=== PATIENT | female | born 1930 | race Caucasian/White ===

== ENCOUNTER 2019-06-12 10:46 | Day surgery (SDC) | payer MEDICARE, BC ==
[2019-06-12] VITALS (11 sets, daily range): BP systolic 134–162; BP diastolic 54–74; PULSE 63–71; TEMP 97.8
[~2019-06-12] VITALS: Ht 147.3 cm; Wt 63.6 kg
[2019-06-12 11:51] LABS: HEMOGLOBIN 12.7 g/dl (12.5-16.0); MEAN CELL VOLUME 94 fl (80.0-100.0); MEAN CORPUSCULAR HEMOGLOBIN 31 pg (27.0-31.0); MEAN CORPUSCULAR HGB CONC 33 g/dl (33.0-37.0); MEAN PLATELET VOLUME 11.6 fl (7.4-10.4); PLATELET COUNT 136 K/mm3 (130-400); RED BLOOD COUNT 4.13 M/mm3 (4.10-5.30); REDCELL DISTRIBUTION WIDTH-CV 13.8 % (11.5-14.5)
[2019-06-12] MEDS ORDERED: TAMBOCOR 1100 MG/TAB PO (11:54)
[2019-06-12] MEDS ORDERED: LOMOTIL 0.025 M1 TAB PO (11:55)
[2019-06-12 11:56] LABS: PROTHROMBIN TIME 11.3 SECONDS (9.7-12.8)
[2019-06-12] MEDS ORDERED: NATURE'S BLE1000 MCG PO (11:56)
[2019-06-12] MEDS ORDERED: PROBIOTIC FORMU1 CAP PO (11:57)
[2019-06-12] MEDS ORDERED: ELDERBERRY (11:57)
[2019-06-12] MEDS ORDERED: B COMPLEX & B121 TAB (11:57)
[2019-06-12 11:58] LABS: PARTIAL THROMBOPLASTIN TIME 31.6 SECONDS (26.0-37.0)
[2019-06-12] MEDS ORDERED: SLIPPERY ELM BARK (11:58)
[2019-06-12] MEDS ORDERED: OMEGA-31 SGL PO (11:58)
[2019-06-12] MEDS ORDERED: MULTI VITAMINS1 TAB PO (11:58)
[2019-06-12] MEDS ORDERED: TURMERIC500 MG (11:59)
[2019-06-12] MEDS ORDERED: RESVERATROL100 MG PO (11:59)
[2019-06-12 12:01] LABS: CALCIUM 9.5 mg/dL (8.4-10.2); CREATININE, serum 0.61 (0.52-1.25); POTASSIUM 3.8 mmol/L (3.4-5.0)
[2019-06-12] MEDS ORDERED: K-DUR 10 MEQ T10 MEQ PO (12:01)
[2019-06-12] MEDS ORDERED: MAGNESIUM200 MG PO (12:01)
[2019-06-12] MEDS ORDERED: CINNAMON500 MG (12:02)
[2019-06-12] MEDS ORDERED: ASPIRIN E.C. 8181 MG PO (12:11)
[2019-06-12] MEDS ORDERED: PROLIA60 MG/ML SQ (12:13)
[2019-06-12] MEDS ORDERED: MELATONIN1 MG PO (12:14)
--- NOTE | 2019-06-12 13:19 | NUR ---
Initial visit; Patient and her family thanked [employer] for offering encouragement and prayer prior to her surgical procedure.
--- NOTE | 2019-06-12 14:11 | NUR ---
SEE MERGE FOR MEDICATION ADMINISTRATION TIMES AND INTRA AND POST SEDATION ASSESSMENTS.
--- NOTE | 2019-06-12 15:18 | NUR ---
HAND OFF REPORT TO TOVA BAHENA WHO WILL ASSUME CARE. NURSE INSTRUCTED TO WATCH FOR CONTRAST ALLERGY REACTION PER DR. DORADO. HEMOSTASIS MAINTAINED, TR BAND TO R WRIST WITH 14CC OF AIR IN THE BAND. ORIGINAL REPORT WAS 12CC OF AIR PRIOR TO TRANSP[facility], OOZING NOTED BY PADMA LUNDY EXTRA 2CC OF AIR PUT IN BAND FOR HEMOSTASIS TOTALLYING 14CC OF AIR. PT IS ALERT AND ORIENTED AT THIS TIME AND HAS NO QUESTIONS OR CONCERNS. PT INSTRUCTED TO KEEP R HAND DOWN AND TO ENSURE SHE KEEPS HER HEAD FLAT UNTIL INSTRUCTED OTHERWISE BY TOVA BAHENA.
[2019-06-12] MEDS ORDERED: ZEBETA 5MG5 MG PO (17:09)
--- NOTE | 2019-06-12 17:20 | NUR ---
5 MLS OF AIR WAS RELEASED FROM TR BAND, AFTER 5 MINUTES THERE WAS ACTIVE BLEEDING. THIS RN PUT BACK THE 5 ML OF AIR INTO THE TR BAND AND INSTRUCTED PT THAT WE WILL WAIT AN ADDITIONAL 30 MINUTES BEFORE RELEASING THE AIR FROM THE TR BAND AGAIN. PT AND SON AWARE.
--- NOTE | 2019-06-12 18:20 | NUR ---
5 ML OF AIR WAS RELEASED AGAIN FROM TR BAND. NO BLEEDING. DISCHARGE INSTRUCTIONS WERE REVIEWED WITH PT/SON. PT/SON VOICE UNDERSTANDING. AFTER 30 MINUTES PT WAS NO LONGER BLEEDING AND THE REMAINING AIR WAS RELEASED FROM THE TR BAND. 2X2 GAUZE AND COBAN WAS APPLIED TO THE RIGHT RADIAL SITE ALONG WITH ARM BOARD TO REMIND PT TO NOT USE HER RIGHT HAND AT THIS TIME. SURROUNDING TISSUE WAS ECHYMOTIC, PT EDUCATED THAT THERE WILL BE SOME BRUISING AT THE SITE AND ENCOURAGED TO APPLY ICE FOR PAIN RELIEF. PT AWARE. PT VOIDED WITH NO COMPLICATIONS. PT AMBULATING WITH CANE WITH NO COMPLICATIONS. ENCOURAGED SON TO WATCH OVER HER FOR THE NEXT 24 HOURS. SON AWARE. IV WAS DISCONTINUED WITH CATHETER TIP INTACT, NO PHLEBITIS OR INFILTRATION. PT WAS DICHARGED VIA W/C TO THE CARE OF SON IN PRIVATE VEHICLE WITH DISCHARGE AND PERSONAL BELONGINGS IN HAND.
== END 2019-06-12 19:27 | disposition home or self-care (01) ==
LOC: COL.CAR 10:46
PROVIDERS: Internal Medicine Cardiovascular Disease
DX: R06.02 Shortness of breath (principal); Z88.1 Allergy status to other antibiotic agents; Z79.899 Other long term (current) drug therapy; Z79.82 Long term (current) use of aspirin
CPT/HCPCS: J1644; J2250; J3010; Q9967